=== PATIENT | female | born 1975 | race African-American/Black ===

== ENCOUNTER 2017-01-02 23:09 | Emergency (ER) | payer OTHER ==
[~2017-01-02] VITALS: Ht 167.6 cm; Wt 102.1 kg
[2017-01-02 23:21] VITALS: BP 185/123
[2017-01-03 00:01] LABS: Urine Bilirubin Negative (Negative); Urine Blood Negative /uL (Negative); Urine Color Yellow (Yellow); Urine Glucose Normal (Normal); Urine Ketone Negative (Negative); Urine Mucus FEW (None Seen); Urine Nitrite Negative (Negative); Urine RBC 2 /hpf (0 - 4); Urine Squamous Epithelial Cell FEW /hpf (<5); Urine Urobilinogen Normal (Negative)
== END 2017-01-03 02:14 | disposition left against medical advice (07) ==
LOC: EDBD 23:09 → ER 23:21
DX: M54.5 Low back pain (principal); Z53.21 Procedure and treatment not carried out due to patient leaving prior to being seen by health care provider
CPT/HCPCS: 72131; 81001; 81025